=== PATIENT | female | born 1950 | race Caucasian/White ===

== ENCOUNTER 2021-08-15 16:49 | Emergency (ER) | payer MEDICARE ==
[~2021-08-15] VITALS: Ht 182.9 cm; Wt 96.3 kg
[2021-08-15] MEDS ORDERED: IOHEXOL 350 MG/ML 100 ML VIAL. ONE (16:53)
--- NOTE | 2021-08-15 17:06 | RAD ---
CT brain without contrast HISTORY: Code stroke, left-sided facial droop, nonverbal CT brain was done without contrast. There is no intracranial hemorrhage or subdural hematoma. Ventric les are dilated from mild hydrocephalus or normal pressure hydrocephalus or potentially atrophy. I do not have an old study for comparison. There is no mass effect or shift of the midline. An acute CVA is not identified. There is mild decreased density in the periventricular white matter. IMPRESSION: 1. No intracranial hemorrhage. 2. Ventricular dilatation. 3. An acute CVA is not identified. FOR INTERNAL CODING PURPOSES Critical result: Findings discussed with ER physician at 08/15/2021 5:02 PM. RESULT CODE: (C) PQRS Compliance Statement: One or more of the following individualized dose reduction techniques were utilized for this examinat ion: 1. Automated exposure control 2. Adjustment of the mA and/or kV according to patient size 3. Use of iterative reconstruction technique Electronically signed by: Jordin Soni MD (08/15/2021 5:03 PM) [facility]
[2021-08-15 17:20] LABS: BASO # 0.2 x10^3/uL (0.0-0.2); BASO % 3 % (0-3); EOS # 0.6 x10^3/uL (0.0-0.7); EOS % 9 % (0-3); HEMATOCRIT 39.7 % (36.0-47.0); HEMOGLOBIN 12.6 g/dL (12.0-15.5); LYMPH # 1.8 x10^3/uL (1.0-4.8); LYMPH % 24 % (24-48); MEAN CORPUSCULAR HEMOGLOBIN 27 pg (25-35); MEAN CORPUSCULAR HGB CONC 32 g/dL (31-37); MEAN CORPUSCULAR VOLUME 85 fL (79-100); MONO # 0.7 x10^3/uL (0.0-1.1); MONO % 9 % (0-9); NEUT # 4.1 x10^3uL (1.8-7.7); NEUT % 55 % (31-73); PLATELET COUNT 270 x10^3/uL (140-400); RED BLOOD COUNT 4.65 x10^6/uL (3.50-5.40); RED CELL DISTRIBUTION WIDTH 15.8 % (11.5-14.5); WHITE BLOOD COUNT 7.4 x10^3/uL (4.0-11.0)
--- NOTE | 2021-08-15 17:22 | PHYS DOC ---
General Adult EDM: Chief Complaint: ALTERED MENTAL STATUS HPI: HPI: Patient is a 71-year-old female brought in by EMS after an episode of altered mental status. Patient was last seen normal at 1600 but then found to be minimally responsive about 20 minutes prior to arrival. Patient is normally alert and oriented x3 and answers questions appropriately. Patient had her first dose of daptomycin today for a MRSA infection. History provided by nursing facility report, EMS, and paperwork provided. Patient has not been in this ER before so history is limited patient initially will talk and say her last name and not appropriate yes/no questions, has equal technical report writer strength. (TANGELA PRASAD MD) Review of Systems: Review of Systems: All other systems within normal limits except for as noted in the HPI (TANGELA PRASAD MD) Current Medications: Current Meds: Current Medications Medications (Trade) Dose Ordered Sig/Monika Start Time Stop Time Status Last Admin Dose Admin Iohexol (Omnipaque 350 Mg/ml) 100 ml STK-MED ONCE 08/15/21 16:53 08/15/21 16:53 DC (TANGELA PRASAD MD) Physical Exam: PE: Constitutional: Well developed, well nourished, no acute distress, non-toxic appearance. [] HENT: Normocephalic, atraumatic, bilateral external ears normal, nose normal. Trimix member [] Eyes: PERRLA, conjunctiva normal, no discharge. [] Neck: No rigidity, supple, no stridor. [] Cardiovascular: Regular rate and rhythm, brisk cap refill [] Lungs & Thorax: Non labored symmetric respirations, no tachypnea or respiratory distress [] Abdomen: Soft, nondistended. Skin: Warm, dry, no erythema, no rash. [] Back: Unremarkable Extremities: No deformities, range of motion grossly intact, no lower extremity edema [] Neurologic: Alert alert, answering simple questions, equal technical report writer strength, exam limited by patient cooperation Psychologic: Affect normal, judgement normal, mood normal. [] (TANGELA PRASAD MD) EKG: EKG: Sinus rhythm, normal axis, no ST elevation depression, heart rate 84 beats minute, no ST elevation or depression, no ectopy. Normal intervals [] (TANGELA PRASAD MD) Radiology/Procedures: Radiology/Procedures: [address] [place] [address] IMAGING REPORT Signed PATIENT: GAGE CHA ACCOUNT: [id number] : 1950 LOCATION: ER AGE: 71 SEX: F EXAM STATUS: PRE ER ORD. PHYSICIAN: TANGELA PRASAD MD REASON: CODE STROKE, LEFT SIDE FACIAL DROOP, NON VERBAL PROCEDURE: CT CODE STROKE HEAD WO CT brain without contrast HISTORY: Code stroke, left-sided facial droop, nonverbal CT brain was done without contrast. There is no intracranial hemorrhage or subdural hematoma. Ventricles are dilated from mild hydrocephalus or normal pressure hydrocephalus or potentially atrophy. I do not have an old study for comparison. There is no mass effect or shift of the midline. An acute CVA is not identified. There is mild decreased density in the periventricular white matter. IMPRESSION: 1. No intracranial hemorrhage. 2. Ventricular dilatation. 3. An acute CVA is not identified. FOR INTERNAL CODING PURPOSES Critical result: Findings discussed with ER physician at 08/15/2021 5:02 PM. RESULT CODE: (C) PQRS Compliance Statement: One or more of the following individualized dose reduction techniques were utilized for this examination: 1. Automated exposure control 2. Adjustment of the mA and/or kV according to patient size 3. Use of iterative reconstruction technique Electronically signed by: Jordin Soni MD (08/15/2021 5:03 PM) [facility] DICTATED AND SIGNED BY: JORDIN SONI MD DATE: 08/15/211657 CC: TANGELA PRASAD MD ~MTH0 0 [][address] [address] IMAGING REPORT Signed PATIENT: GAGE CHA ACCOUNT: [id number] : 1950 LOCATION: ER AGE: 71 SEX: F EXAM STATUS: REG ER ORD. PHYSICIAN: TANGELA PRASAD MD REASON: ams PROCEDURE: CHEST AP ONLY AP chest. HISTORY: Altered mental status, stroke protocol AP view was taken of the chest. There is arthritis in both shoulders. There is a left arm PICC line extending to the superior vena cava. Heart is normal in size. There is no effusion. Patient's taken a poor inspiration. There are no confluent infiltrates. IMPRESSION: 1. Poor inspiration. 2. No confluent infiltrates. Electronically signed by: Jordin Soni MD (08/15/2021 5:32 PM) [facility] DICTATED AND SIGNED BY: JORDIN SONI MD DATE: 08/15/211731 CC: TANGELA PRASAD MD; NON,STAFF ~MTH0 0 (TANGELA PRASAD MD) Heart Score: C/O Chest Pain: No HEART Score for Chest Pain: HEART Score for Chest Pain Response (Comments) Value History Slighlty/Non-Suspicious 0 ECG Normal 0 Age > 65 2 Risk Factors 1 or 2 Risk Factors 1 Troponin < Normal Limit 0 Total 3 Risk Factors: Risk Factors: DM, Current or recent (<one month) smoker, HTN, HLP, family history of CAD, obesity. Risk Scores: Score 0 - 3: 2.5% MACE over next 6 weeks - Discharge Home Score 4 - 6: 20.3% MACE over next 6 weeks - Admit for Clinical Observation Score 7 - 10: 72.7% MACE over next 6 weeks - Early Invasive Strategies (TANGELA PRASAD MD) Course & Med Decision Making: Course & Med Decision Making Pertinent Labs and Imaging studies reviewed. (See chart for details) CT showed no acute infarct. Patient more alert and not finding anything focal on exam. Patient still has mental status based on provided history. Care transitioned at shift change pending blood work. [] (TANGELA PRASAD MD) Course & Med Decision Making See Dr. Prasad chart for details prior shift change. "Look I am not staying.. I am fine now.. You can't keep me... against my will" " I will come back if I have to..." Patient insistent on discharge. Patient currently sitting up in bed eating potato chips complains of no symptoms currently. Encourage patient to be admi tted for observation. Patient persistently refuses asked to be discharged back to her care facility. Impression: 1. Mental status change- Now resolved. 2. Diabetes glucose 159 3. Malnutrition albumin 2.8 (HAFSA PANDYA MD) Darnell Disclaimer: Dragon Disclaimer: This electronic medical record was generated, in whole or in part, using a voice recognition dictation system. (TANGELA PRASAD MD) Departure Departure: Impression: Primary Impression: AMS (altered mental status) Angeliqueon Disclaimer This chart was dictated in whole or in part using Voice Recognition software in a busy, high-work load, and often noisy Emergency Department environment. It may contain unintended and wholly unrecognized errors or omissions. (HAFSA PANDYA MD) Darnell Disclaimer This chart was dictated in whole or in part using Voice Recognition software in a busy, high-work load, and often noisy Emergency Department environment. It may contain unintended and wholly unrecognized errors or omissions. (HAFSA PANDYA MD) TANGELA PRASAD MD Aug 15, 2021 17:22 HAFSA PANDYA MD Aug 15, 2021 18:13
[2021-08-15 17:25] LABS: CALCIUM 9.8 mg/dL (8.5-10.1); CREATININE 1.1 mg/dL (0.6-1.0); POTASSIUM 4.2 mmol/L (3.5-5.1)
--- NOTE | 2021-08-15 17:31 | RAD ---
CT arteriogram the carotid arteries, CT arteriogram of the brain. HISTORY: Altered mental status, code stroke, left-sided facial droop, nonverbal CT arteriogram carotid arteries CT arteriogram was done to evaluate the carotid arteries. 99 mL Omnipaque contrast was used for the s tudy. 6 sagittal and coronal MIP images were reconstructed, three-dimensional images were reconstruct ed. Lung apices are clear. Origins the great vessels at the aortic arch are patent. There are normal size vertebral arteries. There is mild plaque the carotid bifurcation on each side without significan t stenosis. Both vertebral arteries supply flow to the basilar artery. There is extensive degenerativ e change in the cervical spine. There is spinal stenosis at C4-5 and C5-6. AP diameter of the canal m easures 8 mm at C4-5 and 7 mm at C5-6. Patient has a multinodular thyroid largest nodules in the lowe r medial right thyroid measuring 2 x 1.3 cm. IMPRESSION: 1. Mild plaque the carotid bifurcations without significant stenosis. 2. Normal size vertebral arteries. 3. Extensive degenerative change in the cervical spine with spinal stenosis. 4. Multinodular thyroid. End impression CT arteriogram the brain CT arteriogram the brain was done following CT arteriogram the carotid arteries. Three-dimensional im ages were reconstructed. Both vertebral arteries supply flow to the basilar artery. Basilar artery ap pears normal. Posterior cerebral arteries are patent. There is a moderate size right posterior commun icating artery. There is mild plaque at the carotid siphon without significant severe stenosis. There is mucosal thickening in the right maxillary sinus and in the sphenoid sinuses. There is a small A1 segment of the anterior cerebral artery on the right but there is a prominent anterior communicating artery from the left supplying flow to the anterior cerebral arteries which are patent. Middle cerebr al arteries are patent bilaterally. No major vessel occlusion is noted. There is no pathologic enhanc ement. Ventricles are dilated. Major intracranial veins are patent. IMPRESSION: 1. Ventricular dilatation. 2. No major vessel occlusion noted intracranially. 3. Small A1 segment of the right anterior cerebral but prominent anterior communicating artery from t he left supplies flow to the anterior cerebral. 4. No pathologic enhancement or mass noted. PQRS Compliance Statement: One or more of the following individualized dose reduction techniques were utilized for this examinat ion: 1. Automated exposure control 2. Adjustment of the mA and/or kV according to patient size 3. Use of iterative reconstruction technique Electronically signed by: Jordin Soni MD (08/15/2021 5:29 PM) [facility]
--- NOTE | 2021-08-15 17:35 | RAD ---
AP chest. HISTORY: Altered mental status, stroke protocol AP view was taken of the chest. There is arthritis in both shoulders. There is a left arm PICC line e xtending to the superior vena cava. Heart is normal in size. There is no effusion. Patient's taken a poor inspiration. There are no confluent infiltrates. IMPRESSION: 1. Poor inspiration. 2. No confluent infiltrates. Electronically signed by: Jordin Soni MD (08/15/2021 5:32 PM) [facility]
[2021-08-15 17:38] LABS: ALBUMIN 2.8 g/dL (3.4-5.0); ALBUMIN/GLOBULIN RATIO 0.5 (1.0-1.7); PHOSPHORUS 3.6 mg/dL (2.6-4.7); TOTAL BILIRUBIN 0.3 mg/dL (0.2-1.0)
--- NOTE | 2021-08-15 17:42 | EKG ---
[address] [address] Test Date: 2021-08-15 Test Time: 17:03:18 Pat Name: GAGE CHA Department: Room: Gender: F Clinical Genetics Laboratory Chief: BEN : 1950 Requested By: TANGELA PRASAD Order Number: [id number] Reading MD: Russ Martines MD Measurements Intervals [place] Rate: 84 P: 42 [place]: 160 QRS: 10 QRSD: 92 T: 64 QT: 394 QTc: 469 Interpretive Statements SINUS RHYTHM Electronically Signed On 08-17-2021 10:59:54 CDT by Russ Martines MD
[2021-08-15] MEDS ORDERED: CONTRAST GIVEN. MC PRN (17:45)
[2021-08-15] MEDS: IV NORMAL SALINE 1,000ML 1,000 ML IV ONE (17:50)
[2021-08-15 19:30] LABS: BARBITURATES NEG (NEG); BENZODIAZEPINES NEG (NEG); CANNABINOIDS NEG (NEG); COCAINE NEG (NEG); METHADONE NEG (NEG); OPIATES NEG (NEG); PHENCYCLIDINE NEG (NEG)
[2021-08-15 19:59] LABS: BACTERIA,URINE FEW /HPF (0-FEW); BILIRUBIN,URINE NEG (NEG); CLARITY,URINE CLEAR; COLOR,URINE YELLOW; GLUCOSE,URINE NEG (NEG); NITRITE,URINE NEG (NEG); RBC,URINE 0 /HPF (0-2); SQUAMOUS EPITHELIAL CELL,UR FEW /LPF
[2021-08-15 20:03] VITALS: BP 126/65
[2021-08-15 20:10] LABS: AMPHETAMINE/METHAMPHETAMINE NEG (NEG)
== END 2021-08-15 21:23 | disposition home or self-care (01) ==
LOC: ER 16:49
DX: R41.82 Altered mental status, unspecified (principal); Z20.822 Contact with and (suspected) exposure to COVID-19
CPT/HCPCS: 70450; 70496; 70498; 71045; 80053; 80307; 81001; 83605; 83735; 83880; 84100; 84484; 85025; 85610; 87040; 87426; 93005; 96360; 99285; C9803; G0480; J7030; U0003